=== PATIENT | male | born 1965 | race African-American/Black ===

== ENCOUNTER 2025-08-21 03:12 | Inpatient (IN) | payer OTHER, MEDICAID ==
[~2025-08-21] VITALS: Ht 172.7 cm; Wt 81.7 kg
[~2025-08-21 03:12] MED LIST: ASPI-1497 PO; ATOR40TA70 MT; DORZ10DR9 EACHEYE; LATA2.5D7 EACHEYE; LEVO75TA7 PO; LOSA100T33 MT; NIFE90TA69 PO; PANT40TA51 MT; SEVE800T8 PO; TADA5TAB PO; TICA90TA6 PO
[2025-08-21 04:54] LABS: BASOPHILS % 0.3 % (0.0-2.0); EOSINOPHILS % 2.0 % (0.0-5.0); HEMATOCRIT. 34.1 % (42.0-52.0); HEMOGLOBIN. 11.1 g/dL (14.0-18.0); LYMPHOCYTES % 8.1 % (20.0-50.0); MEAN PLATELET VOLUME 8.7 fl (7.4-10.4); MONOCYTES % 8.7 % (2.0-8.0); NEUTROPHILS % 80.9 % (40.0-76.0); PLATELET 193 x1000/uL (130-400); RED BLOOD CELL COUNT 3.73 mill/uL (4.7-6.1); RED CELL DISTRIBUTION WIDTH 16.8 % (11.6-14.6)
[2025-08-21 05:06] LABS: INR 1.1
[2025-08-21] MEDS: ALBUTEROL (0.083%) 2.5MG/3ML NEB HHN ONE (05:07)
[2025-08-21 05:09] VITALS: PULSE 87; RESP 20; O2SAT 96
[2025-08-21 05:28] LABS: UREA NITROGEN BLOOD 65 mg/dL (9-23)
[2025-08-21 05:29] LABS: TROPONIN I HIGH SENSITIVITY 28 ng/L (3.0-53)
[2025-08-21 05:30] LABS: ASPARTATE AMINOTRANSFERASE 50 IU/L (<34); BILIRUBIN DIRECT 0.3 mg/dL (<=3.0); BILIRUBIN TOTAL 0.6 mg/dL (0.1-1.0); PROTEIN TOTAL 7.2 g/dL (6.0-8.3)
[2025-08-21 05:36] LABS: CREATININE 9.2 mg/dL (0.6-1.3)
[2025-08-21] MEDS: VANCOMYCIN 1G PREMIX 200 ML IV ONE (06:31)
[2025-08-21] MEDS: ACETAMINOPHEN 325MG TABLET PO ONE (06:32)
[2025-08-21] MEDS: AZITHROMYCIN 500MG/250ML 250 ML IV ONE (06:32)
[2025-08-21 09:45] VITALS: BP 109/64; PULSE 82; RESP 15; RESP 16; TEMP 36.1956; TEMP 36.7
[2025-08-21 12:00] VITALS: BP 103/49; PULSE 77; RESP 17; TEMP 36.5; O2SAT 96
[2025-08-21] MEDS ORDERED: CLONIDINE 0.1MG TABLET PO PRN (12:45)
[2025-08-21] MEDS: LOSARTAN 100 MG TABLET PO SCH (12:45)
[2025-08-21] MEDS ORDERED: ACETAMINOPHEN 325MG TABLET PO PRN (12:45)
[2025-08-21] MEDS ORDERED: ONDANSETRON HCL 4MG/2ML INJ IV PRN (12:45)
[2025-08-21] MEDS: SEVELAMER CARBONATE 800 MG TABLET PO SCH ×2 (13:07→17:21)
[2025-08-21] MEDS: PANTOPRAZOLE 40MG DR TABLET PO SCH (13:07)
[2025-08-21] MEDS: ASPIRIN 81MG EC TABLET PO SCH (13:07)
[2025-08-21] MEDS: LEVOTHYROXINE SODIUM 75MCG TABLET PO SCH (13:07)
[2025-08-21] MEDS: ATORVASTATIN CALCIUM 40MG TABLET PO SCH (13:07)
[2025-08-21] MEDS: TICAGRELOR 90 MG TABLET PO SCH (13:07)
[2025-08-21] MEDS ORDERED: CEFEPIME 1GM IN DEXT 5% 50ML IV SCH (13:30)
[2025-08-21] MEDS ORDERED: NALOXONE HCL 0.4MG/ML VIAL IV PRN (13:30)
[2025-08-21] MEDS: DORZOLAM/TIMOLOL 2%/0.5% OPHTH DROPS 10ML EACHEYE SCH (14:23)
[2025-08-21 16:00] VITALS: BP 113/71; PULSE 70; RESP 17; TEMP 36.3; O2SAT 100
[2025-08-21] MEDS: CEFEPIME 2,000MG in DEXT 5% WATER 100ML IV SCH (17:21)
[2025-08-21 17:34] LABS: CREATINE KINASE MB FRACTION 1.2 ng/mL (0.5-3.6)
[2025-08-21 17:35] LABS: TROPONIN I HIGH SENSITIVITY 25.0 ng/L (3.0-53)
[2025-08-21 20:00] VITALS: BP 107/52; PULSE 73; RESP 18; TEMP 36.6; O2SAT 97
[2025-08-21] MEDS: ENOXAPARIN 30MG/0.3ML SYR SUBCUT SCH (21:05)
[2025-08-21] MEDS: LATANOPROST 0.005% OPHTH DROPS 2.5ML EACHEYE SCH (21:06)
[2025-08-21 22:26] VITALS: PULSE 69; RESP 18; O2SAT 98
[2025-08-21] MEDS: IPRATROPIUM/ALBUTEROL 0.5-3(2.5)MG/3ML NEB HHN PRN (22:26)
[2025-08-21 23:28] LABS: CREATINE KINASE MB FRACTION 0.8 ng/mL (0.5-3.6); TROPONIN I HIGH SENSITIVITY 23.0 ng/L (3.0-53)
[2025-08-22] VITALS (11 sets, daily range): BP systolic 106–135; BP diastolic 56–77; PULSE 70–79; RESP 17–20; TEMP 36.114–36.5; O2SAT 95–100
[2025-08-22 07:56] LABS: BASOPHILS % 0.5 % (0.0-2.0); EOSINOPHILS % 2.5 % (0.0-5.0); HEMATOCRIT. 33.3 % (42.0-52.0); HEMOGLOBIN. 11.0 g/dL (14.0-18.0); LYMPHOCYTES % 8.8 % (20.0-50.0); MEAN PLATELET VOLUME 8.8 fl (7.4-10.4); MONOCYTES % 11.2 % (2.0-8.0); NEUTROPHILS % 77.0 % (40.0-76.0); PLATELET 188 x1000/uL (130-400); RED BLOOD CELL COUNT 3.65 mill/uL (4.7-6.1); RED CELL DISTRIBUTION WIDTH 17.0 % (11.6-14.6)
[2025-08-22 08:12] LABS: TRIGLYCERIDE 75.0 mg/dL (0-150); UREA NITROGEN BLOOD 77.0 mg/dL (9-23)
[2025-08-22 08:13] LABS: LDL CHOLESTEROL 60.0 mg/dL (5-100)
[2025-08-22] MEDS: PANTOPRAZOLE 40MG DR TABLET PO SCH (08:35)
[2025-08-22 09:06] LABS: CREATININE 10.3 mg/dL (0.6-1.3)
[2025-08-22] MEDS: ATORVASTATIN CALCIUM 40MG TABLET PO SCH (21:26)
[2025-08-23] VITALS: BP 103/60; PULSE 75; RESP 20; TEMP 36.7; O2SAT 98
[2025-08-23 04:00] VITALS: BP 108/62; PULSE 73; RESP 20; TEMP 36.4; O2SAT 98
[2025-08-23] MEDS: HYDROCODONE/ACETAMINOPHEN 5/325MG TABLET PO PRN (04:48)
[2025-08-23 07:56] LABS: BASOPHILS % 0.6 % (0.0-2.0); EOSINOPHILS % 2.0 % (0.0-5.0); HEMATOCRIT. 31.2 % (42.0-52.0); HEMOGLOBIN. 10.0 g/dL (14.0-18.0); LYMPHOCYTES % 9.7 % (20.0-50.0); MEAN PLATELET VOLUME 8.4 fl (7.4-10.4); MONOCYTES % 12.0 % (2.0-8.0); NEUTROPHILS % 75.7 % (40.0-76.0); PLATELET 167 x1000/uL (130-400); RED BLOOD CELL COUNT 3.38 mill/uL (4.7-6.1); RED CELL DISTRIBUTION WIDTH 16.4 % (11.6-14.6)
[2025-08-23 08:00] VITALS: BP 115/61; PULSE 72; RESP 18; TEMP 36.3; O2SAT 98
[2025-08-23 08:19] LABS: UREA NITROGEN BLOOD 52 mg/dL (9-23)
[2025-08-23 08:22] LABS: PHOSPHORUS 5.9 mg/dL (2.5-4.9)
[2025-08-23 09:54] LABS: CREATININE 8.4 mg/dL (0.6-1.3)
[2025-08-23 12:00] VITALS: BP 105/58; PULSE 71; RESP 17; TEMP 36.5; O2SAT 100
[2025-08-23 16:00] VITALS: BP 116/54; PULSE 71; RESP 17; TEMP 36.5; O2SAT 96
[2025-08-23 20:00] VITALS: BP 111/62; PULSE 78; RESP 18; TEMP 36.2; O2SAT 98
[2025-08-24] VITALS (12 sets, daily range): BP systolic 111–130; BP diastolic 59–74; PULSE 71–80; RESP 15–21; TEMP 36.1–36.7; O2SAT 95–98
[2025-08-24 09:03] LABS: BASOPHILS % 0.5 % (0.0-2.0); EOSINOPHILS % 2.2 % (0.0-5.0); HEMATOCRIT. 30.5 % (42.0-52.0); HEMOGLOBIN. 9.8 g/dL (14.0-18.0); LYMPHOCYTES % 10.4 % (20.0-50.0); MEAN PLATELET VOLUME 8.7 fl (7.4-10.4); MONOCYTES % 12.0 % (2.0-8.0); NEUTROPHILS % 74.9 % (40.0-76.0); PLATELET 150 x1000/uL (130-400); RED BLOOD CELL COUNT 3.30 mill/uL (4.7-6.1); RED CELL DISTRIBUTION WIDTH 16.7 % (11.6-14.6)
[2025-08-24 09:12] LABS: UREA NITROGEN BLOOD 64 mg/dL (9-23)
[2025-08-24 09:14] LABS: PHOSPHORUS 6.7 mg/dL (2.5-4.9)
[2025-08-24 09:36] LABS: CREATININE 9.8 mg/dL (0.6-1.3)
[2025-08-24] MEDS ORDERED: ACETAMINOPHEN 325MG TABLET PO PRN (13:15)
[2025-08-24] MEDS ORDERED: NITROGLYCERIN 0.4MG TABLET SL SL PRN (13:15)
[2025-08-24] MEDS: EPOETIN ALFA-EPBX 10,000 UNITS/ML VIAL SUBCUT NR (14:03)
[2025-08-25] VITALS (14 sets, daily range): BP systolic 105–125; BP diastolic 52–69; PULSE 70–79; RESP 16–19; TEMP 36.3–37.00296; O2SAT 95–100
[2025-08-25] MEDS ORDERED: IODIXANOL 320MG/ML 100 ML BOTTLE IV ONE (07:52)
[2025-08-25] MEDS ORDERED: VERAPAMIL HCL 2.5 MG/1 ML 2ML VIAL IV ONE (07:52)
[2025-08-25] MEDS ORDERED: LIDOCAINE HCL/PF 1% 10 MG/ML 5ML VIAL ONE (07:52)
[2025-08-25] MEDS ORDERED: MIDAZOLAM HCL 2 MG/2 ML VIAL ONE (08:12)
[2025-08-25] MEDS ORDERED: FENTANYL CITRATE/PF 50MCG/ML 2ML VIAL ONE (08:12)
[2025-08-25] MEDS ORDERED: HEPARIN 1000 UNITS/ML 10ML ONE (08:14)
[2025-08-25 08:55] LABS: BASOPHILS % 0.9 % (0.0-2.0); EOSINOPHILS % 2.5 % (0.0-5.0); HEMATOCRIT. 28.1 % (42.0-52.0); HEMOGLOBIN. 9.3 g/dL (14.0-18.0); LYMPHOCYTES % 11.6 % (20.0-50.0); MEAN PLATELET VOLUME 8.8 fl (7.4-10.4); MONOCYTES % 11.6 % (2.0-8.0); NEUTROPHILS % 73.4 % (40.0-76.0); PLATELET 145 x1000/uL (130-400); RED BLOOD CELL COUNT 3.06 mill/uL (4.7-6.1); RED CELL DISTRIBUTION WIDTH 16.7 % (11.6-14.6)
[2025-08-25] MEDS ORDERED: ATROPINE SULFATE 1MG/10ML SYR IV PRN (09:00)
[2025-08-25 09:35] LABS: UREA NITROGEN BLOOD 53 mg/dL (9-23)
[2025-08-25 09:37] LABS: PHOSPHORUS 6.3 mg/dL (2.5-4.9)
[2025-08-25 09:44] LABS: CREATININE 9.4 mg/dL (0.6-1.3)
[2025-08-25] MEDS: EPOETIN ALFA-EPBX 4,000 UNITS/ML VIAL SUBCUT SCH (21:40)
[2025-08-26] VITALS: BP 128/66; PULSE 74; RESP 20; TEMP 36.6; O2SAT 96
[2025-08-26 04:00] VITALS: BP 128/64; PULSE 78; RESP 18; TEMP 36.7; O2SAT 98
[2025-08-26 08:00] VITALS: BP 114/73; PULSE 114; RESP 16; TEMP 36.2; O2SAT 97
[2025-08-26 10:46] LABS: BASOPHILS % 1.1 % (0.0-2.0); EOSINOPHILS % 3.1 % (0.0-5.0); HEMATOCRIT. 29.5 % (42.0-52.0); HEMOGLOBIN. 9.8 g/dL (14.0-18.0); LYMPHOCYTES % 10.6 % (20.0-50.0); MEAN PLATELET VOLUME 8.7 fl (7.4-10.4); MONOCYTES % 8.4 % (2.0-8.0); NEUTROPHILS % 76.8 % (40.0-76.0); PLATELET 150 x1000/uL (130-400); RED BLOOD CELL COUNT 3.19 mill/uL (4.7-6.1); RED CELL DISTRIBUTION WIDTH 16.7 % (11.6-14.6)
[2025-08-26 10:56] LABS: UREA NITROGEN BLOOD 67 mg/dL (9-23)
[2025-08-26 10:57] LABS: ASPARTATE AMINOTRANSFERASE 14 IU/L (<34); BILIRUBIN DIRECT 0.2 mg/dL (<=3.0); PHOSPHORUS 6.2 mg/dL (2.5-4.9)
[2025-08-26 10:58] LABS: BILIRUBIN TOTAL 0.4 mg/dL (0.1-1.0); PROTEIN TOTAL 7.2 g/dL (6.0-8.3)
[2025-08-26 11:26] LABS: CREATININE 10.4 mg/dL (0.6-1.3)
[2025-08-26 12:00] VITALS: BP 120/57; PULSE 75; RESP 17; TEMP 36.1; O2SAT 98
[2025-08-26 16:00] VITALS: BP 117/63; PULSE 91; RESP 18; TEMP 36.3; O2SAT 96
[2025-08-26 20:00] VITALS: BP 108/69; PULSE 76; RESP 19; TEMP 36.6; O2SAT 98
[2025-08-27] VITALS (14 sets, daily range): BP systolic 100–144; BP diastolic 50–73; PULSE 76–96; RESP 16–19; TEMP 35.8–37.2; O2SAT 95–100
[2025-08-27 07:51] LABS: UREA NITROGEN BLOOD 74 mg/dL (9-23)
[2025-08-27 07:53] LABS: ASPARTATE AMINOTRANSFERASE 11 IU/L (<34); BILIRUBIN DIRECT 0.2 mg/dL (<=3.0)
[2025-08-27 07:54] LABS: BILIRUBIN TOTAL 0.4 mg/dL (0.1-1.0); PHOSPHORUS 6.3 mg/dL (2.5-4.9); PROTEIN TOTAL 6.9 g/dL (6.0-8.3)
[2025-08-27 08:19] LABS: BASOPHILS % 0.9 % (0.0-2.0); EOSINOPHILS % 3.5 % (0.0-5.0); HEMATOCRIT. 27.7 % (42.0-52.0); HEMOGLOBIN. 8.9 g/dL (14.0-18.0); LYMPHOCYTES % 11.0 % (20.0-50.0); MEAN PLATELET VOLUME 8.7 fl (7.4-10.4); MONOCYTES % 9.2 % (2.0-8.0); NEUTROPHILS % 75.4 % (40.0-76.0); PLATELET 137 x1000/uL (130-400); RED BLOOD CELL COUNT 2.98 mill/uL (4.7-6.1); RED CELL DISTRIBUTION WIDTH 16.7 % (11.6-14.6)
[2025-08-27 08:27] LABS: CREATININE 11.3 mg/dL (0.6-1.3)
[2025-08-27] MEDS: GUAIFENESIN-DM 200MG-20MG/10ML UDC PO PRN (11:26)
[2025-08-27] MEDS: BENZONATATE 100MG CAPSULE PO PRN (14:03)
[2025-08-27] MEDS: CHLORHEXIDINE GLUCONATE 4% EXTERNAL USE TOP SCH (21:00)
[2025-08-27] MEDS ORDERED: BISACODYL 10MG SUPP PR PRN (21:00)
[2025-08-27] MEDS: ASCORBIC ACID 500 MG TABLET PO SCH (21:35)
[2025-08-27] MEDS: ALLOPURINOL 300 MG TABLET PO SCH (21:35)
[2025-08-27] MEDS: DOCUSATE SODIUM 100MG CAPSULE PO SCH (21:35)
[2025-08-28] VITALS (73 sets, daily range): BP systolic 59–156; BP diastolic 34–102; PULSE 83–144; RESP 0–33; TEMP 36.114–37.05852; O2SAT 91–100
[2025-08-28] MEDS: PANTOPRAZOLE SODIUM 40 MG/VIAL IV NR (03:15)
[2025-08-28] MEDS: MORPHINE SULFATE 4 MG/ML INJ (FOR IV/IM USE) IV NR (03:16)
[2025-08-28] MEDS ORDERED: NOREPINEPHRINE 8MG/250ML PMX 250 ML IV PRN (05:00)
[2025-08-28] MEDS: CEFAZOLIN 2,000 MG in DEXT 5% WATER 100 ML IV NR (05:00)
[2025-08-28] MEDS ORDERED: DEL NIDO CARDIOPLEGIA 1,000 ML (PREMIX) IV PRN ×2 (05:00)
[2025-08-28] MEDS ORDERED: DOBUTAMINE 250 MG/250 ML PREMIX IV PRN (05:00)
[2025-08-28] MEDS ORDERED: EPINEPHRINE 5 MG in DEXT 5% WATER 250 ML IV PRN (05:00)
[2025-08-28] MEDS ORDERED: NICARDIPINE 40MG/200ML PREMIX 200 ML IV PRN (05:00)
[2025-08-28] MEDS: PAPAVERINE HCL 180MG in SODIUM CHLORIDE 0.9% 24ML IV NR (05:00)
[2025-08-28] MEDS: VANCOMYCIN 1 G/200 ML PREMIX IV NR (05:00)
[2025-08-28] MEDS ORDERED: AMINOCAPROIC ACID 5,000 MG in SODIUM CHLORIDE 0.9% 250 ML IV PRN (05:00)
[2025-08-28] MEDS: CHLORHEXIDINE GLUCONATE 4% EXTERNAL USE TOP SCH (05:33)
[2025-08-28] MEDS ORDERED: POLYMYXIN B SULFATE 500000 UNITS/VIAL ONE (05:58)
[2025-08-28] MEDS ORDERED: NITROGLYCERIN 50MG PREMIX 250 ML IV ONE (05:58)
[2025-08-28] MEDS ORDERED: THROMBIN (BOVINE) 5000 UNITS/VIAL TOP ONE (05:58)
[2025-08-28] MEDS ORDERED: DEXMEDETOMIDINE 250 ML IV ONE (05:59)
[2025-08-28] MEDS ORDERED: SKIN ADHESIVE 0.7 GM EA TOP ONE (05:59)
[2025-08-28] MEDS ORDERED: PROPOFOL 10MG/ML 100ML 100 ML IV ONE (06:00)
[2025-08-28] MEDS ORDERED: ACETAMINOPHEN 1000MG/100ML 100 ML IV ONE (06:00)
[2025-08-28] MEDS ORDERED: ROCURONIUM BROMIDE 10MG/ML VIAL 5ML IV ONE (06:07)
[2025-08-28] MEDS ORDERED: ETOMIDATE 2MG/ML 10ML VIAL IV ONE (06:21)
[2025-08-28] MEDS ORDERED: FENTANYL CITRATE/PF 50MCG/ML 5ML VIAL ONE (06:21)
[2025-08-28] MEDS ORDERED: ESMOLOL HCL 10MG/ML 10ML VIAL IV ONE (06:21)
[2025-08-28] MEDS ORDERED: PROPOFOL 200MG/20ML VIAL IV ONE (06:21)
[2025-08-28] MEDS ORDERED: HEPARIN 1000 UNITS/ML 10ML ONE ×3 (06:21→10:53)
[2025-08-28] MEDS ORDERED: DEXAMETHASONE 4MG/ML 1ML VIAL ONE (06:21)
[2025-08-28] MEDS ORDERED: LIDOCAINE HCL 1% 10 MG/ML 10ML VIAL ONE (06:22)
[2025-08-28] MEDS ORDERED: CALCIUM CHLORIDE 1GM/10ML SYR IV ONE ×3 (06:36→10:53)
[2025-08-28] MEDS ORDERED: VASOPRESSIN 20 UNIT/ML 1ML ONE (06:41)
[2025-08-28] MEDS ORDERED: DESMOPRESSIN ACETATE 4MCG/ML AMP ONE ×4 (07:16→15:41)
[2025-08-28] MEDS ORDERED: SEVOFLURANE 250 ML LIQUID INH ONE (07:36)
[2025-08-28] MEDS: LEVOTHYROXINE SODIUM 88MCG TABLET PO SCH (07:50)
[2025-08-28] MEDS ORDERED: SODIUM BICARBONATE 8.4% 50MEQ/50ML SYR IV ONE ×2 (09:07→10:53)
[2025-08-28] MEDS ORDERED: HYDROCODONE/ACETAMINOPHEN 5/325MG TABLET PO PRN (09:15)
[2025-08-28] MEDS ORDERED: KETOROLAC 30MG/ML VIAL ONE (10:38)
[2025-08-28] MEDS ORDERED: LIDOCAINE HCL 2% 5ML SYRINGE IV ONE (10:53)
[2025-08-28] MEDS ORDERED: AMINOCAPROIC ACID 250 MG/ML 20ML VIAL ONE (10:53)
[2025-08-28] MEDS ORDERED: PHENYLEPHRINE HCL 10MG/ML 1ML IV ONE (10:53)
[2025-08-28] MEDS ORDERED: MAGNESIUM SULFATE 5GM/10ML VIAL IV ONE (10:53)
[2025-08-28] MEDS ORDERED: FUROSEMIDE 20MG/2ML VIAL ONE (10:53)
[2025-08-28] MEDS ORDERED: ALBUMIN HUMAN 25GM/100ML (25%) IV ONE (10:53)
[2025-08-28] MEDS ORDERED: MAGNESIUM SULFATE 3 GM in DEXT 5% WATER 100 ML IV PRN (11:15)
[2025-08-28] MEDS ORDERED: KETOROLAC 30MG/ML VIAL IV PRN (11:15)
[2025-08-28] MEDS ORDERED: CEFAZOLIN 1000MG PREMIX 50 ML IV SCH (11:15)
[2025-08-28] MEDS ORDERED: SODIUM CHLORIDE 0.9% 500 ML IV PRN (11:15)
[2025-08-28 11:29] LABS: BASOPHILS % 0.8 % (0.0-2.0); EOSINOPHILS % 4.2 % (0.0-5.0); HEMATOCRIT. 24.9 % (42.0-52.0); HEMOGLOBIN. 8.3 g/dL (14.0-18.0); LYMPHOCYTES % 10.9 % (20.0-50.0); MEAN PLATELET VOLUME 8.4 fl (7.4-10.4); MONOCYTES % 3.7 % (2.0-8.0); NEUTROPHILS % 80.4 % (40.0-76.0); PLATELET 89 x1000/uL (130-400); RED BLOOD CELL COUNT 2.75 mill/uL (4.7-6.1); RED CELL DISTRIBUTION WIDTH 16.0 % (11.6-14.6)
[2025-08-28 11:36] LABS: INR 1.5
[2025-08-28 11:40] LABS: UREA NITROGEN BLOOD 55 mg/dL (9-23)
[2025-08-28 11:41] LABS: ASPARTATE AMINOTRANSFERASE 17 IU/L (<34)
[2025-08-28 11:42] LABS: BILIRUBIN TOTAL 0.7 mg/dL (0.1-1.0); PHOSPHORUS 5.1 mg/dL (2.5-4.9); PROTEIN TOTAL 5.2 g/dL (6.0-8.3)
[2025-08-28 12:00] LABS: CREATININE 7.9 mg/dL (0.6-1.3)
[2025-08-28] MEDS: DOPAMINE 400MG/250ML PREMIX 250 ML IV PRN ×2 (12:00→21:21)
[2025-08-28] MEDS ORDERED: HUMAN-LANS PROTHROMBIN CPLX (PCC) 500 UNITS VIAL IV ONE (12:00)
[2025-08-28] MEDS: INSULIN REGULAR 100 U/100 ML PREMIX IV PRN (12:02)
[2025-08-28 12:10] LABS: BG BASE EXCESS -2.4 mmol/L (-2.0-3.0); BG CARBOXYHEMOGLOBIN 0.7 % (0.5-1.5); BG DEOXYHEMOGLOBIN 1.5 % (0.0-5.0); BG FRACTION INSPIRED OXYGEN 100; BG HCO3 ACT 23.8 mmol/L (21.0-28.0); BG METHEMOGLOBIN 0.3 % (0.5-1.5); BG OXYGEN SATURATION 98.5 % (94.0-98.0); BG OXYHEMOGLOBIN 97.5 % (94.0-98.0); BG PCO2 48.2 mmHg (35.0-48.0); BG PEEP (cmH2O) 6.0 cmH2O; BG PH 7.312 (7.350-7.450); BG PO2 166.8 mmHg (83.0-108.0); BG SAMPLE SITE ALINE; BG TIDAL VOLUME(mL) 500.0 mL; BG TOTAL HEMOGLOBIN 9.0 g/dL (13.5-17.5); BG TOTAL RESPIRATORY RATE 14 b/min; BG VENT MODE VENT - AC; BG VENT RATE 14.0 set
[2025-08-28] MEDS ORDERED: EPINEPHRINE 5 MG in DEXT 5% WATER 245 ML IV PRN (12:30)
[2025-08-28] MEDS ORDERED: KETOROLAC 15MG/ML VIAL IV PRN (12:30)
[2025-08-28] MEDS ORDERED: ALBUMIN HUMAN 25GM/100ML (25%) IV PRN (12:30)
[2025-08-28] MEDS: ALBUMIN HUMAN 12.5G/250ML (5%) IV NR (12:30)
[2025-08-28 12:58] LABS: HEMATOCRIT. 25.3 % (42.0-52.0); HEMOGLOBIN. 8.5 g/dL (14.0-18.0); MEAN PLATELET VOLUME 8.1 fl (7.4-10.4); PLATELET 117 x1000/uL (130-400); RED BLOOD CELL COUNT 2.79 mill/uL (4.7-6.1); RED CELL DISTRIBUTION WIDTH 15.4 % (11.6-14.6)
[2025-08-28] MEDS ORDERED: CALCIUM CHLORIDE 3,000 MG in DEXT 5% WATER 250 ML IV PRN (13:00)
[2025-08-28] MEDS: DEXT 5%/0.45% NACL 1000ML 1,000 ML IV SCH (13:00)
[2025-08-28] MEDS ORDERED: CALCIUM CHLORIDE 5,000 MG in DEXT 5% WATER 500 ML IV PRN (13:00)
[2025-08-28] MEDS ORDERED: ACETAMINOPHEN 325MG TABLET PO PRN (13:00)
[2025-08-28 13:23] LABS: INR 1.4
[2025-08-28] MEDS: AMINOCAPROIC ACID 5,000 MG in SODIUM CHLORIDE 0.9% 230 ML IV ONE (13:32)
[2025-08-28] MEDS: AMINOCAPROIC ACID 5,000 MG in SODIUM CHLORIDE 0.9% 230 ML IV NR (13:33)
[2025-08-28] MEDS: CALCIUM GLUCONATE 3,000 MG in DEXT 5% WATER 220 ML IV ONE (13:41)
[2025-08-28] MEDS: SODIUM BICARBONATE 8.4% 50MEQ/50ML SYR IV SCH (13:45)
[2025-08-28] MEDS ORDERED: ALBUMIN HUMAN 12.5G/250ML (5%) IV ONE (14:11)
[2025-08-28 14:14] LABS: BG BASE EXCESS -2.5 mmol/L (-2.0-3.0); BG CARBOXYHEMOGLOBIN 0.3 % (0.5-1.5); BG DEOXYHEMOGLOBIN 1.8 % (0.0-5.0); BG FRACTION INSPIRED OXYGEN 60; BG HCO3 ACT 22.7 mmol/L (21.0-28.0); BG METHEMOGLOBIN 0.3 % (0.5-1.5); BG OXYGEN SATURATION 98.2 % (94.0-98.0); BG OXYHEMOGLOBIN 97.6 % (94.0-98.0); BG PCO2 40.6 mmHg (35.0-48.0); BG PEEP (cmH2O) 6.0 cmH2O; BG PH 7.365 (7.350-7.450); BG PO2 140.1 mmHg (83.0-108.0); BG SAMPLE SITE ALINE; BG TIDAL VOLUME(mL) 550.0 mL; BG TOTAL HEMOGLOBIN 9.9 g/dL (13.5-17.5); BG TOTAL RESPIRATORY RATE 16 b/min; BG VENT MODE VENT - AC; BG VENT RATE 16.0 set
[2025-08-28] MEDS: IPRATROPIUM/ALBUTEROL 0.5-3(2.5)MG/3ML NEB HHN SCH (14:28)
[2025-08-28] MEDS ORDERED: NOREPINEPHRINE 8 MG in SODIUM CHLORIDE 0.9% 250 ML IV PRN (14:30)
[2025-08-28] MEDS: BLOOD SUGAR DIAGNOSTIC STRIP TEST SCH ×2 (14:30→20:00)
[2025-08-28] MEDS ORDERED: DOPAMINE 400MG/250ML PREMIX 250 ML IV PRN (14:30)
[2025-08-28 14:37] LABS: BAND% 4.0 % (1.0-6.0); EOSINOPHILS % MANUAL 6.0 % (0.0-5.0); LYMPHOCYTES % MANUAL 7.0 % (20.0-50.0); NEUTROPHILS % MANUAL 83.0 % (45.0-75.0)
[2025-08-28 14:38] LABS: PLATELET ESTIMATE DECREASED
[2025-08-28] MEDS: NOREPINEPHRINE 8MG/250ML PMX 250ML IV PRN (14:45)
[2025-08-28] MEDS ORDERED: KCL 10MEQ/50ML PREMIX 150 ML IV PRN (15:45)
[2025-08-28] MEDS ORDERED: KCL 10MEQ/50ML PREMIX 200 ML IV PRN (15:45)
[2025-08-28] MEDS ORDERED: KCL 10MEQ/50ML PREMIX 100 ML IV PRN (15:45)
[2025-08-28 16:27] LABS: BG BASE EXCESS -1.6 mmol/L (-2.0-3.0); BG CARBOXYHEMOGLOBIN 1.7 % (0.5-1.5); BG DEOXYHEMOGLOBIN 5.2 % (0.0-5.0); BG FRACTION INSPIRED OXYGEN 40; BG HCO3 ACT 23.6 mmol/L (21.0-28.0); BG METHEMOGLOBIN 0.3 % (0.5-1.5); BG OXYGEN SATURATION 94.7 % (94.0-98.0); BG OXYHEMOGLOBIN 92.8 % (94.0-98.0); BG PCO2 41.4 mmHg (35.0-48.0); BG PEEP (cmH2O) 5.0 cmH2O; BG PH 7.373 (7.350-7.450); BG PO2 75.0 mmHg (83.0-108.0); BG SAMPLE SITE ALINE; BG TOTAL HEMOGLOBIN 12.7 g/dL (13.5-17.5); BG VENT MODE VENT - CPAP
[2025-08-28] MEDS: VANCOMYCIN 500 MG in DEXT 5% WATER 100 ML IV SCH (17:20)
[2025-08-28] MEDS: ONDANSETRON HCL 4MG/2ML INJ IV PRN (17:20)
[2025-08-28] MEDS: MAGNESIUM HYDROXIDE 400MG/5ML 30ML UDC PO SCH (17:20)
[2025-08-28] MEDS: OXYCODONE HCL/ACETAMINOPHEN 5/325MG TABLET PO PRN (17:21)
[2025-08-28 17:32] LABS: BASOPHILS % 0.5 % (0.0-2.0); EOSINOPHILS % 2.9 % (0.0-5.0); HEMATOCRIT. 35.2 % (42.0-52.0); HEMOGLOBIN. 11.7 g/dL (14.0-18.0); LYMPHOCYTES % 7.1 % (20.0-50.0); MEAN PLATELET VOLUME 8.4 fl (7.4-10.4); MONOCYTES % 7.6 % (2.0-8.0); NEUTROPHILS % 81.9 % (40.0-76.0); PLATELET 90 x1000/uL (130-400); RED BLOOD CELL COUNT 4.12 mill/uL (4.7-6.1); RED CELL DISTRIBUTION WIDTH 16.7 % (11.6-14.6)
[2025-08-28 17:45] LABS: INR 1.2
[2025-08-28 17:48] LABS: UREA NITROGEN BLOOD 38.0 mg/dL (9-23)
[2025-08-28 17:59] LABS: CREATININE 5.8 mg/dL (0.6-1.3)
[2025-08-28] MEDS: METOCLOPRAMIDE HCL 10MG/2ML VIAL IV SCH (18:27)
[2025-08-28] MEDS: ACETAMINOPHEN 325MG TABLET PO PRN (18:27)
[2025-08-28 18:40] LABS: PHOSPHORUS 4.5 mg/dL (2.5-4.9)
[2025-08-28] MEDS: MAGNESIUM 2 G PREMIX 50 ML IV PRN (18:46)
[2025-08-28] MEDS: INSULIN REGULAR 100U/100ML PMX 100 ML IV SCH (19:02)
[2025-08-28] MEDS: BACITRACIN 14GM TUBE TOP SCH (21:00)
[2025-08-28] MEDS: DOCUSATE SODIUM 100MG CAPSULE PO SCH (21:16)
[2025-08-28 21:42] LABS: HEPATITIS A AB IGM NEGATIVE (Negative)
[2025-08-28 21:43] LABS: HEPATITIS B CORE AB IGM NEGATIVE (Negative); HEPATITIS C AB NON REACTIVE (Neg) (Negative)
[2025-08-28 23:23] LABS: HEMATOCRIT. 28.4 % (42.0-52.0); HEMOGLOBIN. 9.5 g/dL (14.0-18.0); MEAN PLATELET VOLUME 8.8 fl (7.4-10.4); PLATELET 98 x1000/uL (130-400); RED BLOOD CELL COUNT 3.33 mill/uL (4.7-6.1); RED CELL DISTRIBUTION WIDTH 17.1 % (11.6-14.6)
[2025-08-28 23:39] LABS: UREA NITROGEN BLOOD 44 mg/dL (9-23)
[2025-08-28 23:41] LABS: PHOSPHORUS 6.0 mg/dL (2.5-4.9)
[2025-08-28 23:43] LABS: CREATININE 6.5 mg/dL (0.6-1.3)
[2025-08-29] VITALS (112 sets, daily range): BP systolic 82–144; BP diastolic 50–100; PULSE 89–123; RESP 8–33; TEMP 36.3–36.9; O2SAT 87–100
[2025-08-29] MEDS: MAGNESIUM 1 G PREMIX 100 ML IV PRN (00:54)
[2025-08-29 02:01] LABS: BAND% 4.0 % (1.0-6.0); EOSINOPHILS % MANUAL 2.0 % (0.0-5.0); LYMPHOCYTES % MANUAL 5.0 % (20.0-50.0); MONOCYTES % MANUAL 4.0 % (2.0-8.0); NEUTROPHILS % MANUAL 85.0 % (45.0-75.0)
[2025-08-29 02:02] LABS: PLATELET ESTIMATE DECREASED
[2025-08-29] MEDS: CEFAZOLIN 1000MG PREMIX 50ML IV NR (05:27)
[2025-08-29 05:30] LABS: BG BASE EXCESS -4.0 mmol/L (-2.0-3.0); BG CARBOXYHEMOGLOBIN 1.7 % (0.5-1.5); BG DEOXYHEMOGLOBIN 9.4 % (0.0-5.0); BG FLOW(L/min) 4.00 L/min; BG FRACTION INSPIRED OXYGEN 36; BG HCO3 ACT 22.6 mmol/L (21.0-28.0); BG METHEMOGLOBIN 0.3 % (0.5-1.5); BG OXYGEN SATURATION 90.4 % (94.0-98.0); BG OXYHEMOGLOBIN 88.6 % (94.0-98.0); BG PCO2 48.0 mmHg (35.0-48.0); BG PH 7.291 (7.350-7.450); BG PO2 65.4 mmHg (83.0-108.0); BG SAMPLE SITE ALINE; BG TOTAL HEMOGLOBIN 11.5 g/dL (13.5-17.5); BG VENT MODE NASAL CANNULA
[2025-08-29 05:33] LABS: BASOPHILS % 0.8 % (0.0-2.0); EOSINOPHILS % 2.0 % (0.0-5.0); HEMATOCRIT. 24.4 % (42.0-52.0); HEMOGLOBIN. 8.1 g/dL (14.0-18.0); LYMPHOCYTES % 7.5 % (20.0-50.0); MEAN PLATELET VOLUME 8.8 fl (7.4-10.4); MONOCYTES % 10.3 % (2.0-8.0); NEUTROPHILS % 79.4 % (40.0-76.0); PLATELET 78 x1000/uL (130-400); RED BLOOD CELL COUNT 2.86 mill/uL (4.7-6.1); RED CELL DISTRIBUTION WIDTH 17.5 % (11.6-14.6)
[2025-08-29 05:52] LABS: UREA NITROGEN BLOOD 47 mg/dL (9-23)
[2025-08-29 05:54] LABS: PHOSPHORUS 7.1 mg/dL (2.5-4.9)
[2025-08-29 05:56] LABS: CREATININE 6.9 mg/dL (0.6-1.3)
[2025-08-29] MEDS: ASPIRIN 81MG EC TABLET PO SCH (09:21)
[2025-08-29] MEDS: MIDODRINE HCL 5MG TABLET PO SCH (09:22)
[2025-08-29] MEDS: OXYCODONE HCL/ACETAMINOPHEN 5/325MG TABLET PO PRN (09:23)
[2025-08-29 10:43] LABS: BG BASE EXCESS -0.4 mmol/L (-2.0-3.0); BG CARBOXYHEMOGLOBIN 1.2 % (0.5-1.5); BG DEOXYHEMOGLOBIN 5.9 % (0.0-5.0); BG FLOW(L/min) 4.00 L/min; BG FRACTION INSPIRED OXYGEN 36; BG HCO3 ACT 25.1 mmol/L (21.0-28.0); BG METHEMOGLOBIN 0.3 % (0.5-1.5); BG OXYGEN SATURATION 94.0 % (94.0-98.0); BG OXYHEMOGLOBIN 92.6 % (94.0-98.0); BG PCO2 44.9 mmHg (35.0-48.0); BG PH 7.365 (7.350-7.450); BG PO2 73.7 mmHg (83.0-108.0); BG SAMPLE SITE ALINE; BG TOTAL HEMOGLOBIN 10.2 g/dL (13.5-17.5); BG VENT MODE NASAL CANNULA
[2025-08-29] MEDS: VANCOMYCIN 750MG PREMIX 150 ML IV SCH (12:09)
[2025-08-29] MEDS: INSULIN LISPRO 100 UNITS/ML SUBCUT SCH (12:19)
[2025-08-29] MEDS: NALOXONE HCL 0.4MG/ML 1ML VIAL IV SCH (14:23)
[2025-08-29] MEDS: BUMETANIDE 2.5MG/10ML VIAL IV SCH (17:30)
[2025-08-29 20:23] LABS: PLATELET 72 x1000/uL (130-400); RED BLOOD CELL COUNT 3.49 mill/uL (4.7-6.1); RED CELL DISTRIBUTION WIDTH 16.9 % (11.6-14.6)
[2025-08-30] VITALS (101 sets, daily range): BP systolic 80–164; BP diastolic 58–108; PULSE 78–96; RESP 9–32; TEMP 36.4–36.8; O2SAT 91–100
[2025-08-30 06:27] LABS: BASOPHILS % 0.5 % (0.0-2.0); EOSINOPHILS % 2.9 % (0.0-5.0); HEMATOCRIT. 27.1 % (42.0-52.0); HEMOGLOBIN. 9.1 g/dL (14.0-18.0); LYMPHOCYTES % 8.1 % (20.0-50.0); MEAN PLATELET VOLUME 8.7 fl (7.4-10.4); MONOCYTES % 8.6 % (2.0-8.0); NEUTROPHILS % 79.9 % (40.0-76.0); PLATELET 62 x1000/uL (130-400); RED BLOOD CELL COUNT 3.16 mill/uL (4.7-6.1); RED CELL DISTRIBUTION WIDTH 16.6 % (11.6-14.6)
[2025-08-30 06:37] LABS: UREA NITROGEN BLOOD 45 mg/dL (9-23)
[2025-08-30 06:39] LABS: PHOSPHORUS 5.3 mg/dL (2.5-4.9)
[2025-08-30 06:40] LABS: CREATININE 6.6 mg/dL (0.6-1.3)
[2025-08-30 11:07] LABS: HEMATOCRIT. 28.6 % (42.0-52.0); HEMOGLOBIN. 9.4 g/dL (14.0-18.0); MEAN PLATELET VOLUME 8.8 fl (7.4-10.4); PLATELET 68 x1000/uL (130-400); RED BLOOD CELL COUNT 3.32 mill/uL (4.7-6.1); RED CELL DISTRIBUTION WIDTH 16.9 % (11.6-14.6)
[2025-08-30 11:41] LABS: BAND% 5.0 % (1.0-6.0); EOSINOPHILS % MANUAL 1.0 % (0.0-5.0); LYMPHOCYTES % MANUAL 7.0 % (20.0-50.0); MONOCYTES % MANUAL 8.0 % (2.0-8.0); NEUTROPHILS % MANUAL 79.0 % (45.0-75.0); PLATELET ESTIMATE DECREASED
[2025-08-30] MEDS: DEXTROSE 50% WATER 50ML SYRINGE IV PRN (11:50)
[2025-08-30] MEDS: EPOETIN ALFA-EPBX 4,000 UNITS/ML VIAL SUBCUT SCH (22:07)
[2025-08-31] VITALS (98 sets, daily range): BP systolic 91–171; BP diastolic 56–112; PULSE 66–87; RESP 8–27; TEMP 36.4–37.1; O2SAT 92–100
[2025-08-31 06:43] LABS: BASOPHILS % 0.5 % (0.0-2.0); EOSINOPHILS % 3.5 % (0.0-5.0); HEMATOCRIT. 28.6 % (42.0-52.0); HEMOGLOBIN. 9.5 g/dL (14.0-18.0); LYMPHOCYTES % 10.4 % (20.0-50.0); MEAN PLATELET VOLUME 8.7 fl (7.4-10.4); MONOCYTES % 8.3 % (2.0-8.0); NEUTROPHILS % 77.3 % (40.0-76.0); PLATELET 62 x1000/uL (130-400); RED BLOOD CELL COUNT 3.28 mill/uL (4.7-6.1); RED CELL DISTRIBUTION WIDTH 17.6 % (11.6-14.6)
[2025-08-31 06:58] LABS: UREA NITROGEN BLOOD 29 mg/dL (9-23)
[2025-08-31 07:00] LABS: PHOSPHORUS 3.3 mg/dL (2.5-4.9)
[2025-08-31 07:06] LABS: CREATININE 5.3 mg/dL (0.6-1.3)
[2025-08-31 10:55] LABS: BASOPHILS % 0.6 % (0.0-2.0); EOSINOPHILS % 4.1 % (0.0-5.0); HEMATOCRIT. 29.8 % (42.0-52.0); HEMOGLOBIN. 9.5 g/dL (14.0-18.0); LYMPHOCYTES % 8.3 % (20.0-50.0); MEAN PLATELET VOLUME 8.6 fl (7.4-10.4); MONOCYTES % 7.6 % (2.0-8.0); NEUTROPHILS % 79.4 % (40.0-76.0); PLATELET 63 x1000/uL (130-400); RED BLOOD CELL COUNT 3.38 mill/uL (4.7-6.1); RED CELL DISTRIBUTION WIDTH 17.7 % (11.6-14.6)
[2025-08-31 11:12] LABS: UREA NITROGEN BLOOD 32.0 mg/dL (9-23)
[2025-08-31 11:16] LABS: CREATININE 5.6 mg/dL (0.6-1.3)
[2025-09-01] VITALS (47 sets, daily range): BP systolic 100–163; BP diastolic 56–110; PULSE 72–88; RESP 13–28; TEMP 36.1–37.00296; O2SAT 97–100
[2025-09-01 06:47] LABS: BASOPHILS % 0.4 % (0.0-2.0); EOSINOPHILS % 3.5 % (0.0-5.0); HEMATOCRIT. 31.8 % (42.0-52.0); HEMOGLOBIN. 10.3 g/dL (14.0-18.0); LYMPHOCYTES % 10.8 % (20.0-50.0); MEAN PLATELET VOLUME 8.7 fl (7.4-10.4); MONOCYTES % 12.0 % (2.0-8.0); NEUTROPHILS % 73.3 % (40.0-76.0); PLATELET 64 x1000/uL (130-400); RED BLOOD CELL COUNT 3.54 mill/uL (4.7-6.1); RED CELL DISTRIBUTION WIDTH 17.7 % (11.6-14.6)
[2025-09-01 07:15] LABS: UREA NITROGEN BLOOD 27 mg/dL (9-23)
[2025-09-01 07:17] LABS: ASPARTATE AMINOTRANSFERASE 21 IU/L (<34); BILIRUBIN TOTAL 1.0 mg/dL (0.1-1.0); PHOSPHORUS 2.7 mg/dL (2.5-4.9)
[2025-09-01 07:18] LABS: PROTEIN TOTAL 6.7 g/dL (6.0-8.3)
[2025-09-01 08:36] LABS: CREATININE 5.2 mg/dL (0.6-1.3)
[2025-09-01] MEDS ORDERED: NALOXONE HCL 0.4MG/ML VIAL IV PRN (19:00)
[2025-09-02] VITALS (16 sets, daily range): BP systolic 121–150; BP diastolic 60–100; PULSE 73–88; RESP 10–24; TEMP 36.4–36.9; O2SAT 96–100
[2025-09-02 10:33] LABS: BASOPHILS % 0.8 % (0.0-2.0); EOSINOPHILS % 6.2 % (0.0-5.0); HEMATOCRIT. 27.3 % (42.0-52.0); HEMOGLOBIN. 9.0 g/dL (14.0-18.0); LYMPHOCYTES % 10.2 % (20.0-50.0); MEAN PLATELET VOLUME 8.5 fl (7.4-10.4); MONOCYTES % 10.1 % (2.0-8.0); NEUTROPHILS % 72.7 % (40.0-76.0); PLATELET 64 x1000/uL (130-400); RED BLOOD CELL COUNT 3.08 mill/uL (4.7-6.1); RED CELL DISTRIBUTION WIDTH 16.9 % (11.6-14.6)
[2025-09-02 10:54] LABS: ASPARTATE AMINOTRANSFERASE 17 IU/L (<34)
[2025-09-02 10:55] LABS: CREATININE 5.7 mg/dL (0.6-1.3); UREA NITROGEN BLOOD 33 mg/dL (9-23)
[2025-09-02 10:57] LABS: BILIRUBIN TOTAL 0.8 mg/dL (0.1-1.0); PHOSPHORUS 2.5 mg/dL (2.5-4.9); PROTEIN TOTAL 6.2 g/dL (6.0-8.3)
[2025-09-03] VITALS (14 sets, daily range): BP systolic 114–140; BP diastolic 65–94; PULSE 75–114; RESP 16–23; TEMP 36.3–36.7; O2SAT 96–100
[2025-09-03 06:55] LABS: BASOPHILS % 0.5 % (0.0-2.0); EOSINOPHILS % 6.4 % (0.0-5.0); HEMATOCRIT. 31.0 % (42.0-52.0); HEMOGLOBIN. 10.1 g/dL (14.0-18.0); LYMPHOCYTES % 10.4 % (20.0-50.0); MEAN PLATELET VOLUME 8.7 fl (7.4-10.4); MONOCYTES % 13.0 % (2.0-8.0); NEUTROPHILS % 69.7 % (40.0-76.0); PLATELET 70 x1000/uL (130-400); RED BLOOD CELL COUNT 3.43 mill/uL (4.7-6.1); RED CELL DISTRIBUTION WIDTH 17.1 % (11.6-14.6)
[2025-09-03 07:22] LABS: UREA NITROGEN BLOOD 32.0 mg/dL (9-23)
[2025-09-03 07:35] LABS: CREATININE 5.7 mg/dL (0.6-1.3)
[2025-09-04] VITALS: BP 148/91; PULSE 109; RESP 17; TEMP 36.6; O2SAT 96
[2025-09-04 04:00] VITALS: BP 121/65; PULSE 77; RESP 15; TEMP 36.7; O2SAT 97
[2025-09-04 08:00] VITALS: BP 136/82; PULSE 81; RESP 17; TEMP 36.4; O2SAT 100
[2025-09-04 12:00] VITALS: BP 128/84; PULSE 76; RESP 15; TEMP 36.7; O2SAT 98
[2025-09-04 13:33] LABS: BASOPHILS % 0.5 % (0.0-2.0); EOSINOPHILS % 6.2 % (0.0-5.0); HEMATOCRIT. 36.5 % (42.0-52.0); HEMOGLOBIN. 11.3 g/dL (14.0-18.0); LYMPHOCYTES % 11.0 % (20.0-50.0); MEAN PLATELET VOLUME 8.9 fl (7.4-10.4); MONOCYTES % 11.2 % (2.0-8.0); NEUTROPHILS % 71.1 % (40.0-76.0); PLATELET 92 x1000/uL (130-400); RED BLOOD CELL COUNT 3.96 mill/uL (4.7-6.1); RED CELL DISTRIBUTION WIDTH 17.5 % (11.6-14.6)
[2025-09-04 16:00] VITALS: BP 120/77; PULSE 74; RESP 18; TEMP 36.6; O2SAT 98
[2025-09-04 20:00] VITALS: BP 134/71; PULSE 81; RESP 20; TEMP 36.4; O2SAT 98
[2025-09-05] VITALS (19 sets, daily range): BP systolic 98–137; BP diastolic 54–97; PULSE 65–88; RESP 12–24; TEMP 36.2–37.1; O2SAT 85–100
[2025-09-05 08:15] LABS: BASOPHILS % 0.6 % (0.0-2.0); EOSINOPHILS % 6.3 % (0.0-5.0); HEMATOCRIT. 33.8 % (42.0-52.0); HEMOGLOBIN. 10.8 g/dL (14.0-18.0); LYMPHOCYTES % 13.5 % (20.0-50.0); MEAN PLATELET VOLUME 8.9 fl (7.4-10.4); MONOCYTES % 14.6 % (2.0-8.0); NEUTROPHILS % 65.0 % (40.0-76.0); PLATELET 96 x1000/uL (130-400); RED BLOOD CELL COUNT 3.68 mill/uL (4.7-6.1); RED CELL DISTRIBUTION WIDTH 17.3 % (11.6-14.6)
[2025-09-05 09:15] LABS: UREA NITROGEN BLOOD 39 mg/dL (9-23)
[2025-09-05 09:17] LABS: PHOSPHORUS 4.0 mg/dL (2.5-4.9)
[2025-09-05 09:49] LABS: CREATININE 6.9 mg/dL (0.6-1.3)
[2025-09-05] MEDS ORDERED: IPRATROPIUM/ALBUTEROL 0.5-3(2.5)MG/3ML NEB HHN PRN (11:15)
[2025-09-05] MEDS: IPRATROPIUM/ALBUTEROL 0.5-3(2.5)MG/3ML NEB HHN SCH (11:29)
[2025-09-06] VITALS (18 sets, daily range): BP systolic 98–140; BP diastolic 57–87; PULSE 74–119; RESP 14–28; TEMP 36.4–36.72516; O2SAT 95–99
[2025-09-06 07:33] LABS: HEMATOCRIT. 31.4 % (42.0-52.0); HEMOGLOBIN. 10.0 g/dL (14.0-18.0); MEAN PLATELET VOLUME 8.3 fl (7.4-10.4); PLATELET 98 x1000/uL (130-400); RED BLOOD CELL COUNT 3.43 mill/uL (4.7-6.1); RED CELL DISTRIBUTION WIDTH 17.5 % (11.6-14.6)
[2025-09-06 08:00] LABS: UREA NITROGEN BLOOD 39 mg/dL (9-23)
[2025-09-06 08:02] LABS: PHOSPHORUS 4.1 mg/dL (2.5-4.9)
[2025-09-06 09:07] LABS: CREATININE 6.4 mg/dL (0.6-1.3)
[2025-09-06 11:23] LABS: BAND% 1.0 % (1.0-6.0); EOSINOPHILS % MANUAL 5.0 % (0.0-5.0); LYMPHOCYTES % MANUAL 15.0 % (20.0-50.0); MONOCYTES % MANUAL 18.0 % (2.0-8.0); NEUTROPHILS % MANUAL 61.0 % (45.0-75.0)
[2025-09-06 11:24] LABS: PLATELET ESTIMATE DECREASED
[2025-09-07] VITALS (9 sets, daily range): BP systolic 105–132; BP diastolic 66–96; PULSE 86–116; RESP 17–30; TEMP 36.2–36.7; O2SAT 95–100
[2025-09-07 09:21] LABS: HEMATOCRIT. 30.4 % (42.0-52.0); HEMOGLOBIN. 9.6 g/dL (14.0-18.0); MEAN PLATELET VOLUME 8.6 fl (7.4-10.4); PLATELET 98 x1000/uL (130-400); RED BLOOD CELL COUNT 3.35 mill/uL (4.7-6.1); RED CELL DISTRIBUTION WIDTH 17.8 % (11.6-14.6)
[2025-09-07 09:43] LABS: UREA NITROGEN BLOOD 39 mg/dL (9-23)
[2025-09-07 09:44] LABS: PHOSPHORUS 4.3 mg/dL (2.5-4.9)
[2025-09-07 09:49] LABS: CREATININE 6.4 mg/dL (0.6-1.3)
[2025-09-07] MEDS ORDERED: PANT40TA51 PO (13:28)
[2025-09-07] MEDS ORDERED: EPOE40009 SUBCUT (13:28)
[2025-09-07] MEDS ORDERED: SEVE800T8 PO (13:28)
[2025-09-07] MEDS ORDERED: LIP40 PO (13:28)
[2025-09-07] MEDS ORDERED: DORZ10DR32 EACHEYE (13:28)
[2025-09-07] MEDS ORDERED: LEVO88TA7 PO (13:28)
[2025-09-07] MEDS ORDERED: XALAO EACHEYE (13:28)
[2025-09-07] MEDS ORDERED: BENZ100C86 PO (13:28)
[2025-09-07] MEDS ORDERED: RDML10 PO (13:28)
[2025-09-07] MEDS ORDERED: MIDO5TAB4 PO (13:28)
[2025-09-07] MEDS ORDERED: DOCU-422 PO (13:28)
[2025-09-07] MEDS ORDERED: ASPI-1406 PO (13:28)
[2025-09-07 16:21] LABS: EOSINOPHILS % MANUAL 3.0 % (0.0-5.0); LYMPHOCYTES % MANUAL 17.0 % (20.0-50.0); MONOCYTES % MANUAL 9.0 % (2.0-8.0); NEUTROPHILS % MANUAL 71.0 % (45.0-75.0); PLATELET ESTIMATE DECREASED
== END 2025-09-07 16:33 | DRG 216 ==
LOC: ER 03:12 → 6WST 05:29 → EDBEDREQTM 05:48 → EDBEDREQ 05:48 → CVICU 08-28 03:59 → 3WST 09-01 18:20
PROVIDERS: ADMIT Internal Medicine; ATTEND Internal Medicine
PROC: 5A1221Z Performance of Cardiac Output, Continuous (ICD-10-PCS; 2025-08-22)
PROC: 5A1D70Z Performance of Urinary Filtration, Intermittent, Less than 6 Hours Per Day (ICD-10-PCS; 2025-08-24)
PROC: B2101ZZ Fluoroscopy of Single Coronary Artery using Low Osmolar Contrast (ICD-10-PCS; principal; 2025-08-25)
PROC: 5A1D70Z Performance of Urinary Filtration, Intermittent, Less than 6 Hours Per Day (ICD-10-PCS; 2025-08-25)
PROC: 5A1D70Z Performance of Urinary Filtration, Intermittent, Less than 6 Hours Per Day (ICD-10-PCS; 2025-08-25)
PROC: 5A1D70Z Performance of Urinary Filtration, Intermittent, Less than 6 Hours Per Day (ICD-10-PCS; 2025-08-27)
PROC: 5A1D70Z Performance of Urinary Filtration, Intermittent, Less than 6 Hours Per Day (ICD-10-PCS; 2025-08-27)
PROC: 02RF08Z Replacement of Aortic Valve with Zooplastic Tissue, Open Approach (ICD-10-PCS; 2025-08-28)
PROC: 02100Z9 Bypass Coronary Artery, One Artery from Left Internal Mammary, Open Approach (ICD-10-PCS; 2025-08-28)
PROC: 0BNM0ZZ Release Bilateral Lungs, Open Approach (ICD-10-PCS; 2025-08-28)
PROC: 5A1D70Z Performance of Urinary Filtration, Intermittent, Less than 6 Hours Per Day (ICD-10-PCS; 2025-08-28)
PROC: 30233K1 Transfusion of Nonautologous Frozen Plasma into Peripheral Vein, Percutaneous Approach (ICD-10-PCS; 2025-08-28)
PROC: 30233N1 Transfusion of Nonautologous Red Blood Cells into Peripheral Vein, Percutaneous Approach (ICD-10-PCS; 2025-08-28)
PROC: 30233R1 Transfusion of Nonautologous Platelets into Peripheral Vein, Percutaneous Approach (ICD-10-PCS; 2025-08-28)
PROC: 30233M1 Transfusion of Nonautologous Plasma Cryoprecipitate into Peripheral Vein, Percutaneous Approach (ICD-10-PCS; 2025-08-28)
PROC: B24BZZ4 Ultrasonography of Heart with Aorta, Transesophageal (ICD-10-PCS; 2025-08-28)
PROC: 5A1D70Z Performance of Urinary Filtration, Intermittent, Less than 6 Hours Per Day (ICD-10-PCS; 2025-08-29)
PROC: 5A1D70Z Performance of Urinary Filtration, Intermittent, Less than 6 Hours Per Day (ICD-10-PCS; 2025-08-30)
PROC: 5A1D70Z Performance of Urinary Filtration, Intermittent, Less than 6 Hours Per Day (ICD-10-PCS; 2025-08-31)
PROC: 5A1D70Z Performance of Urinary Filtration, Intermittent, Less than 6 Hours Per Day (ICD-10-PCS; 2025-09-01)
PROC: 5A1D70Z Performance of Urinary Filtration, Intermittent, Less than 6 Hours Per Day (ICD-10-PCS; 2025-09-02)
PROC: 5A1D70Z Performance of Urinary Filtration, Intermittent, Less than 6 Hours Per Day (ICD-10-PCS; 2025-09-03)
PROC: 5A1D70Z Performance of Urinary Filtration, Intermittent, Less than 6 Hours Per Day (ICD-10-PCS; 2025-09-05)
PROC: 5A1D70Z Performance of Urinary Filtration, Intermittent, Less than 6 Hours Per Day (ICD-10-PCS; 2025-09-06)
DX: T82.855A Stenosis of coronary artery stent, initial encounter (principal); Z00.6 Encounter for examination for normal comparison and control in clinical research program; J18.9 Pneumonia, unspecified organism; J96.90 Respiratory failure, unspecified, unspecified whether with hypoxia or hypercapnia; N18.6 End stage renal disease; I13.2 Hypertensive heart and chronic kidney disease with heart failure and with stage 5 chronic kidney disease, or end stage renal disease; J44.0 Chronic obstructive pulmonary disease with (acute) lower respiratory infection; D68.9 Coagulation defect, unspecified; I47.20 Ventricular tachycardia, unspecified; J94.2 Hemothorax; I25.10 Atherosclerotic heart disease of native coronary artery without angina pectoris; E03.9 Hypothyroidism, unspecified; E78.5 Hyperlipidemia, unspecified; I50.9 Heart failure, unspecified; Y83.1 Surgical operation with implant of artificial internal device as the cause of abnormal reaction of the patient, or of later complication, without mention of misadventure at the time of the procedure; T82.867A Thrombosis due to cardiac prosthetic devices, implants and grafts, initial encounter; D64.9 Anemia, unspecified; I35.2 Nonrheumatic aortic (valve) stenosis with insufficiency; I49.3 Ventricular premature depolarization; Z79.82 Long term (current) use of aspirin; Z82.49 Family history of ischemic heart disease and other diseases of the circulatory system; Z95.3 Presence of xenogenic heart valve; Z99.2 Dependence on renal dialysis; Y92.89 Other specified places as the place of occurrence of the external cause; Z79.899 Other long term (current) drug therapy
CPT/HCPCS: 36415; 36600; 71045; 71250; 76604; 80048; 80053; 80061; 80076; 80320; 82375; 82550; 82553; 82805; 82962; 83605; 83735; 84100; 84145; 84436; 84443; 84484; 85025; 85027; 85347; 85384; 85520; 86705; 86706; 86709; 86850; 86900; 86920; 86927; 87070; 87075; 87077; 87186; 87340; 88304; 88305; 90935; 93005; 93454; 93880; 93970; 94002; 94060; 94070; 94640; 94664; 94760; 96365; 96366; 96367; 97110; 97116; 97162; 97166; 97530; 97535; 99285; A4606; C1725; C1729; C1751; C1758; C1769; C1887; C1893; J0456; J0612; J0690; J0692; J0885; J1100; J1250; J1265; J1644; J1650; J1815; J1885; J1938; J2003; J2250; J2270; J2312; J2371; J2405; J2440; J2470; J2597; J2704; J2765; J3010; J3373; J3475; J3490; J7050; J7060; L3908; P9012; P9016; P9017; P9034; P9041; P9047; Q9967; A4217; C1713; G0480; J0131; J8499